=== PATIENT | male | born 1955 | race African-American/Black ===

== ENCOUNTER 2022-11-15 03:43 | Emergency (ER) | payer BC, OTHER ==
[~2022-11-15] VITALS: Ht 167.6 cm; Wt 81.7 kg
[2022-11-15] MEDS ORDERED: AMLO5TAB88 MT (06:21)
[2022-11-15 06:55] VITALS: BP 169/95
== END 2022-11-15 06:57 | disposition home or self-care (01) ==
LOC: ER 03:43
DX: I10 Essential (primary) hypertension (principal)
CPT/HCPCS: 99283